=== PATIENT | female | born 1955 | race African-American/Black ===

== ENCOUNTER 2018-02-25 14:10 | Emergency (ER) | payer OTHER ==
[~2018-02-25] VITALS: Ht 160 cm; Wt 109.3 kg
[2018-02-25] MEDS ORDERED: ZESTRIL20 MG (14:16)
[2018-02-25] MEDS ORDERED: FUROSEMIDE20 MG (14:17)
== END 2018-02-25 15:40 | disposition home or self-care (01) ==
LOC: ER 14:10
DX: K42.9 Umbilical hernia without obstruction or gangrene (principal)

== ENCOUNTER 2018-04-10 07:14 | Day surgery (SDC) | payer OTHER ==
[~2018-04-10 07:14] MED LIST: FUROSEMIDE20 MG; NAPROXEN250 MG PO; ZANTAC300 MG PO; ZESTRIL20 MG PO
== END 2018-04-10 17:05 | disposition home or self-care (01) ==
LOC: CIR.AMB 07:14
DX: K43.2 Incisional hernia without obstruction or gangrene (principal)

== ENCOUNTER 2019-01-13 10:15 | Inpatient (IN) | payer OTHER ==
[~2019-01-13] VITALS: Ht 160 cm; Wt 109.8 kg
[~2019-01-13 10:15] MED LIST changes: -FUROSEMIDE20 MG; +FUROSEMIDE20 MG PO
[2019-01-15] MEDS ORDERED: HYDROCHLOROTHIA25 MG PO (08:49)
[2019-01-15] MEDS ORDERED: VITAMIN D32000 UNI1 PO (08:50)
[2019-01-15] MEDS ORDERED: LIPITOR40 MG PO (08:50)
[2019-01-15] MEDS ORDERED: METFORMIN HCL500 M3 PO (09:17)
[2019-01-22] MEDS ORDERED: CIPRO500 MG PO (14:05)
[2019-01-22] MEDS ORDERED: ELIQUIS2.5 MG PO (14:05)
[2019-01-22] MEDS ORDERED: PERCOCET 5-3251 EACH PO (14:05)
== END 2019-01-22 15:28 | DRG 470 ==
LOC: O/R 01-20 05:04 → SURG 01-20 07:00
PROVIDERS: ADMIT Orthopaedic Surgery
PROC: 0MNN0ZZ Release Right Knee Bursa and Ligament, Open Approach (ICD-10-PCS; 2019-01-20)
PROC: 4A12X4Z Monitoring of Cardiac Electrical Activity, External Approach (ICD-10-PCS; 2019-01-20)
PROC: 0SRC0J9 Replacement of Right Knee Joint with Synthetic Substitute, Cemented, Open Approach (ICD-10-PCS; principal; 2019-01-20 07:00)
DX: M17.11 Unilateral primary osteoarthritis, right knee (principal); D62 Acute posthemorrhagic anemia; E66.01 Morbid (severe) obesity due to excess calories; I10 Essential (primary) hypertension; E11.9 Type 2 diabetes mellitus without complications; Z79.4 Long term (current) use of insulin